=== PATIENT | female | born 1985 | race African-American/Black ===

== ENCOUNTER 2016-08-04 15:15 | Outpatient (RCR) | payer BC ==
[~2016-08-04 15:15] MED LIST: BACTRIM DS 8001 TAB PO; CEPHALEXIN250 M1 PO; NO HOME MEDICATIONS; PERCOCET 325 MG1 TA2 PO; ZOFRAN 4MG T4 MG/TAB PO
== END 2016-08-17 09:41 | disposition still patient (30) ==
LOC: WSPT 15:15
DX: M48.06 Spinal stenosis, lumbar region (principal)

== ENCOUNTER 2017-01-10 02:12 | Emergency (ER) | payer OTHER, BC ==
[~2017-01-10] VITALS: Ht 154.9 cm; Wt 123.6 kg
[2017-01-10] MEDS ORDERED: TOPROL XL 25MG25 MG PO (02:16)
[2017-01-10] MEDS ORDERED: LEVOXYL0.025 MG PO (02:17)
[2017-01-10] MEDS ORDERED: PRINZIDE 12.5 M1 TAB PO (02:17)
[2017-01-10] MEDS ORDERED: VITAMIN D 1001000 IU PO (02:18)
[2017-01-10] MEDS ORDERED: SODIUM BICARBO650 MG PO (02:19)
[2017-01-10 02:21] VITALS: BP 132/68; TEMP 98.6
[2017-01-10] MEDS ORDERED: NORCO 325 MG-51 TAB PO (02:46)
[2017-01-10 03:10] VITALS: PULSE 84
== END 2017-01-10 03:14 | disposition home or self-care (01) ==
LOC: COL.ER 02:12
DX: M79.671 Pain in right foot (principal); I12.9 Hypertensive chronic kidney disease with stage 1 through stage 4 chronic kidney disease, or unspecified chronic kidney disease; N18.9 Chronic kidney disease, unspecified
CPT/HCPCS: J1170

== ENCOUNTER 2017-04-03 05:07 | Emergency (ER) | payer OTHER ==
[~2017-04-03] VITALS: Ht 154.9 cm; Wt 122.3 kg
[~2017-04-03 05:07] MED LIST changes: +LEVOXYL0.025 MG PO; +NORCO 325 MG-51 TAB PO; +PRINZIDE 12.5 M1 TAB PO; +SODIUM BICARBO650 MG PO; +TOPROL XL 25MG25 MG PO; +VITAMIN D 1001000 IU PO
[2017-04-03 05:08] VITALS: BP 131/72; TEMP 98.2
[2017-04-03] MEDS ORDERED: ERGOCALCIFER50000 IU PO (05:34)
[2017-04-03] MEDS ORDERED: PRINZIDE 25 MG-1 TAB PO (05:34)
[2017-04-03] MEDS ORDERED: SYNTHROID 0.0.025 MG PO (05:35)
[2017-04-03] MEDS ORDERED: SODIUM BICARBO650 MG PO (05:36)
[2017-04-03] MEDS ORDERED: PREDNISONE20 MG PO (05:44)
[2017-04-03 05:51] VITALS: PULSE 72
== END 2017-04-03 05:51 | disposition home or self-care (01) ==
LOC: COL.ER 05:07
DX: T78.3XXA Angioneurotic edema, initial encounter (principal); I12.9 Hypertensive chronic kidney disease with stage 1 through stage 4 chronic kidney disease, or unspecified chronic kidney disease; N18.9 Chronic kidney disease, unspecified
CPT/HCPCS: J7512

== ENCOUNTER 2018-09-29 01:09 | Emergency (ER) | payer BC | END 2018-09-29 03:43 | disposition home or self-care (01) | LOC: COL.ER 01:09 | DX: G50.0 Trigeminal neuralgia (principal); I10 Essential (primary) hypertension ==

== ENCOUNTER 2018-12-14 08:33 | Emergency (ER) | payer BC ==
[~2018-12-14] VITALS: Ht 154.9 cm; Wt 118.2 kg
[~2018-12-14 08:33] MED LIST changes: +ERGOCALCIFER50000 IU PO; +MAGIC MOUTH PO; +NEURONTIN300 MG/CAP PO; +PREDNISONE20 MG PO; +PRINZIDE 25 MG-1 TAB PO; +SYNTHROID 0.0.025 MG PO
[2018-12-14 08:40] VITALS: BP 171/90; TEMP 97.9
[2018-12-14] MEDS ORDERED: PERCOCET 325 MG1 TA2 PO (09:12)
[2018-12-14] MEDS ORDERED: LIORESAL 1010 MG/TAB PO (09:21)
[2018-12-14 09:59] VITALS: PULSE 84
== END 2018-12-14 09:59 | disposition home or self-care (01) ==
LOC: COL.ER 08:33
DX: G50.0 Trigeminal neuralgia (principal)

== ENCOUNTER → 2018-12-26 | Outpatient (CLI) | payer BC ==
[~2018-12-26] MED LIST changes: +LIORESAL 1010 MG/TAB PO
== END ==
LOC: COL.VAS 10:00
DX: N18.5 Chronic kidney disease, stage 5 (principal)
CPT/HCPCS: G0365

== ENCOUNTER 2023-08-30 02:33 | Emergency (ER) | payer MEDICARE ==
[~2023-08-30] VITALS: Ht 154.9 cm; Wt 75.5 kg
[2023-08-30 02:36] VITALS: TEMP 98.1
[2023-08-30] MEDS ORDERED: Sucralfate Susp 1 GM/10 ML UD PO ONE (03:00)
[2023-08-30] MEDS ORDERED: NS 1,000 ML IV ONE (03:00)
[2023-08-30 03:12] LABS: COLLECTION METHOD CLEAN CATCH
[2023-08-30 03:16] LABS: BASO % 0.4 % (0.0-2.0); EOS % 0.4 % (0.0-4.0); GRAN # 7.2 K/mm3 (1.4-6.5); GRAN % 79.2 % (42.2-75.2); HEMATOCRIT 42.2 % (37.0-47.0); LYMPH % 11.4 % (20.0-51.0); MEAN CELL VOLUME 95 fl (80.0-100.0); MEAN CORPUSCULAR HEMOGLOBIN 32 pg (27-31); MEAN CORPUSCULAR HGB CONC 33 g/dl (33.0-37.0); MEAN PLATELET VOLUME 10.1 fl (7.4-10.4); MONO # 0.8 K/mm3 (0.1-0.6); MONO % 8.3 % (1.7-9.3); PLATELET COUNT 215 K/mm3 (130-400); RED BLOOD COUNT 4.44 M/mm3 (4.10-5.30); REDCELL DISTRIBUTION WIDTH-CV 13.5 % (11.5-14.5)
[2023-08-30 03:21] LABS: INR 1.1 (0.8-3.0); PROTHROMBIN TIME 11.9 SECONDS (9.7-12.8)
[2023-08-30 03:24] LABS: PARTIAL THROMBOPLASTIN TIME 40.3 SECONDS (26.0-37.0)
[2023-08-30 03:29] LABS: PH 5.5 (5.0-8.5); URINE APPEARANCE Clear (CLEAR/HAZY); URINE BACTERIA Rare /hpf (NONE SEEN); URINE BLOOD Negative (NEGATIVE); URINE COLOR Yellow (YELLOW); URINE GLUCOSE Negative (NEGATIVE); URINE KETONE Negative (NEGATIVE); URINE NITRATE Negative (NEGATIVE); URINE PROTEIN(semi-quant) Negative (NEGATIVE); URINE RBC None Seen /hpf (0-2); URINE UROBILINOGEN 0.2 E.U/dL (0.2-1.0)
[2023-08-30 03:40] LABS: ALBUMIN 4.1 gm/dL (3.5-5.0); C-REACTIVE PROTEIN 0.07 mg/dL (0.00-0.50); CALCIUM 9.3 mg/dL (8.4-10.2); CREATININE, serum 1.15 mg/dL (0.57-1.11); POTASSIUM 4.5 mmol/L (3.5-4.5); TOTAL PROTEIN 7.3 gm/dL (6.2-8.1)
[2023-08-30 03:52] LABS: BILIRUBIN,TOTAL 1.1 mg/dL (0.2-1.2)
[2023-08-30] MEDS ORDERED: Iohexol 300 - 100 ML VIAL IV ONE (04:51)
[2023-08-30] MEDS ORDERED: NS 64 ML IV SCH (04:53)
[2023-08-30] MEDS ORDERED: CARAFATE S1 GM/10 ML PO (05:45)
[2023-08-30 06:07] VITALS: BP 114/79; PULSE 71
== END 2023-08-30 06:10 | disposition home or self-care (01) ==
LOC: COL.ER 02:33
PROVIDERS: Emergency Medicine
DX: K92.0 Hematemesis (principal); K21.9 Gastro-esophageal reflux disease without esophagitis; Z79.899 Other long term (current) drug therapy; Z87.891 Personal history of nicotine dependence; Z98.84 Bariatric surgery status; Z94.0 Kidney transplant status
CPT/HCPCS: J7030; Q9967